=== PATIENT | male | born 1990 | race American Indian/Alaskan Native ===

== ENCOUNTER 2019-07-19 00:10 | Emergency (ER) | payer SELFPAY ==
[2019-07-19 00:22] VITALS: BP 118/68
[2019-07-19] MEDS ORDERED: traMADol 50 MG TAB PO ONE (02:55)
--- NOTE | 2019-07-19 02:59 | Emergency Department Report ---
ED ENT HPI - General Chief complaint: Dental/Oral Stated complaint: MOUTH/HEAD PAIN Time Seen by Provider: 07/19/19 02:53 Source: patient Mode of arrival: Ambulatory Limitations: No Limitations - History of Present Illness Initial comments: pt is a a28 y/o aam who presents for dental pain x 3 day, hx of dental carries x 2 yrs. pt denies fever or chills, no throat or ear pain , no gum swelling or facial swelling. Pt is tolerating po intake. MD complaint: tooth pain Onset/Timin -: days(s) Location: tooth # (30) Severity: moderate Severity scale (0 -10): 5 Quality: aching Consistency: constant Improves with: none Worsens with: eating Context- Dental: history of dental caries, poor dental care Associated Symptoms: toothache. denies: fever, cough, gum swelling, pain with swallowing, sore throat, tinnitus - Related Data Previous Rx's Medication Instructions Recorded Last Taken Type Amoxicillin [Trimox CAP] 500 mg PO Q8H 10 Days #30 capsule 07/19/19 Unknown Rx Chlorhexidine Mouthwash [Peridex] 15 ml MM BID #1 bottle 07/19/19 Unknown Rx traMADol [Ultram] 50 mg PO Q6HR PRN #12 tablet 07/19/19 Unknown Rx ED Dental HPI - General Chief complaint: Dental/Oral Stated complaint: MOUTH/HEAD PAIN Time Seen by Provider: 07/19/19 02:53 Source: patient Mode of arrival: Ambulatory Limitations: No Limitations - Related Data Previous Rx's Medication Instructions Recorded Last Taken Type Amoxicillin [Trimox CAP] 500 mg PO Q8H 10 Days #30 capsule 07/19/19 Unknown Rx Chlorhexidine Mouthwash [Peridex] 15 ml MM BID #1 bottle 07/19/19 Unknown Rx traMADol [Ultram] 50 mg PO Q6HR PRN #12 tablet 07/19/19 Unknown Rx ED Review of Systems ROS: Stated complaint: MOUTH/HEAD PAIN Other details as noted in HPI Constitutional: denies: chills, fever Eyes: denies: eye pain, eye discharge, vision change ENT: dental pain. denies: ear pain, throat pain Respiratory: denies: cough, shortness of breath, wheezing Cardiovascular: denies: chest pain, palpitations Endocrine: no symptoms reported Gastrointestinal: denies: abdominal pain, nausea, diarrhea Genitourinary: denies: urgency, dysuria Musculoskeletal: denies: back pain, joint swelling, arthralgia Skin: denies: rash, lesions Neurological: denies: headache, weakness, paresthesias Psychiatric: denies: anxiety, depression Hematological/Lymphatic: denies: easy bleeding, easy bruising ED Past Medical Hx - Past Medical History Previous Medical History?: No - Surgical History Past Surgical History?: Yes Additional Surgical History: c4-5 sx, Hernia - Social History Smoking Status: Current Every Day Smoker - Medications Home Medications: Home Medications Medication Instructions Recorded Confirmed Last Taken Type Amoxicillin [Trimox CAP] 500 mg PO Q8H 10 Days #30 capsule 07/19/19 Unknown Rx Chlorhexidine Mouthwash [Peridex] 15 ml MM BID #1 bottle 07/19/19 Unknown Rx traMADol [Ultram] 50 mg PO Q6HR PRN #12 tablet 07/19/19 Unknown Rx ED Physical Exam - General Limitations: No Limitations General appearance: alert, in no apparent distress - Head Head exam: Present: atraumatic, normocephalic - Eye Eye exam: Present: normal appearance, PERRL, EOMI. Absent: conjunctival injection Pupils: Present: normal accommodation - ENT ENT exam: Present: mucous membranes moist, TM's normal bilaterally, normal external ear exam - Expanded ENT Exam Expanded Mouth exam: Absent: trismus Teeth exam: Present: dental caries, dental tenderness # (30) - Neck Neck exam: Present: normal inspection - Respiratory Respiratory exam: Present: normal lung sounds bilaterally. Absent: respiratory distress, wheezes, stridor, chest wall tenderness - Cardiovascular Cardiovascular Exam: Present: regular rate, normal rhythm, normal heart sounds. Absent: systolic murmur, diastolic murmur, rubs, gallop - GI/Abdominal GI/Abdominal exam: Present: soft, normal bowel sounds - Rectal Rectal exam: Present: deferred - Extremities Exam Extremities exam: Present: normal inspection, full ROM, tenderness - Back Exam Back exam: Present: normal inspection, full ROM - Neurological Exam Neurological exam: Present: alert, oriented X3, CN II-XII intact, normal gait - Psychiatric Psychiatric exam: Present: normal affect, normal mood - Skin Skin exam: Present: warm, dry, intact, normal color. Absent: rash ED Course Vital Signs 07/19/19 00:17 Temperature 98.7 F Pulse Rate 63 Respiratory 18 Rate Blood Pressure 118/68 O2 Sat by Pulse 98 Oximetry ED Medical Decision Making - Medical Decision Making this is infected dental carries no focal abscess plan: amoxicillin , ultram, peridex , follow up with dentist, pt verbalized agreement and understanding discharge plan. Critical care attestation.: If time is entered above; I have spent that time in minutes in the direct care of this critically ill patient, excluding procedure time. ED Disposition Clinical Impression: Dental caries Disposition: - TO HOME OR SELFCARE Is pt being admited?: No Does the pt Need Aspirin: No Condition: Stable Instructions: Dental Caries (ED) Additional Instructions: follow up with dentist as directed Prescriptions: Chlorhexidine Mouthwash [Peridex] 15 ml MM BID #1 bottle Amoxicillin [Trimox CAP] 500 mg PO Q8H 10 Days #30 capsule traMADol [Ultram] 50 mg PO Q6HR PRN #12 tablet PRN Reason: Pain Referrals: PAN MCKEON III, [facility] [Primary Care Provider] - 3-5 Days Forms: Work/School Release Form(ED) Time of Disposition: 03:05
== END 2019-07-19 03:34 | disposition home or self-care (01) ==
LOC: ED 00:10
DX: K02.9 Dental caries, unspecified (principal); F17.200 Nicotine dependence, unspecified, uncomplicated; Z79.899 Other long term (current) drug therapy

== ENCOUNTER 2020-01-20 12:53 | Emergency (ER) | payer MEDICAID, OTHER ==
[2020-01-20 15:24] LABS: Basophils % (Auto) 0.8 % (0.0-1.8); Eosinophils # (Auto) 0.3 K/mm3 (0.0-0.4); Hematocrit 42.5 % (35.5-45.6); Hemoglobin 14.4 gm/dl (11.8-15.2); Lymphocytes # (Auto) 2.2 K/mm3 (1.2-5.4); Mean Corpuscular HGB Conc 34 % (32-34); Mean Corpuscular Volume 94 fl (84-94); Monocytes # (Auto) 0.5 K/mm3 (0.0-0.8); Monocytes % (Auto) 7.9 % (0.0-7.3); Platelet Count 200 K/mm3 (140-440); Red Blood Count 4.52 M/mm3 (3.65-5.03); Red Cell Distribution Width 12.9 % (13.2-15.2)
--- NOTE | 2020-01-20 15:27 | Emergency Department Report ---
HPI - General Chief Complaint: Abdominal Pain Time Seen by Provider: 01/20/20 14:57 - HPI HPI: 29-year-old -[place] male presents to the emergency department with complaint of some pain to the bottom of the left side of his rib cage and to the left flank that has been going on for the past 2 days. The pain worsens with certain movements and when he presses on this area. He denies any swelling, rash, skin color change. He denies any fever, nausea, vomiting, dysuria, diarrhea or constipation. No past medical history. He has not taken anything for his symptoms prior to presentation. ED Past Medical Hx - Past Medical History Previous Medical History?: No - Surgical History Past Surgical History?: Yes Additional Surgical History: c4-5 sx, Hernia - Social History Smoking Status: Current Every Day Smoker Substance Use Type: Marijuana - Medications Home Medications: Home Medications Medication Instructions Recorded Confirmed Last Taken Type Amoxicillin [Trimox CAP] 500 mg PO Q8H 10 Days #30 capsule 07/19/19 Unknown Rx Chlorhexidine Mouthwash [Peridex] 15 ml MM BID #1 bottle 07/19/19 Unknown Rx traMADoL [Ultram] 50 mg PO Q6HR PRN #12 tablet 07/19/19 Unknown Rx Ibuprofen [Motrin 800 MG tab] 800 mg PO Q8HR PRN #20 tablet 01/20/20 Unknown Rx ED Review of Systems ROS: Stated complaint: LEFT RIB PAIN Other details as noted in HPI Comment: All other systems reviewed and negative Constitutional: denies: chills, fever Respiratory: denies: cough, shortness of breath Cardiovascular: denies: palpitations, edema Gastrointestinal: abdominal pain (left flank). denies: vomiting Genitourinary: denies: dysuria, discharge Musculoskeletal: other (left lower lateral rib cage pain). denies: back pain Skin: denies: rash, change in color Neurological: denies: headache, weakness Physical Exam - Physical Exam Vital Signs: Vital Signs 01/20/20 13:10 Temperature 98.0 F Pulse Rate 65 Respiratory 18 Rate Blood Pressure 127/80 O2 Sat by Pulse 100 Oximetry Physical Exam: GENERAL: The patient is well-developed well-nourished. HENT: Normocephalic. Atraumatic. Patient has moist mucous membranes. EYES: Extraocular motions are intact. NECK: Supple. Trachea is midline. CHEST/LUNGS: Clear to auscultation. There is no respiratory distress noted. HEART/CARDIOVASCULAR: Regular. There is no tachycardia. There is no murmur. ABDOMEN: Abdomen is soft. There is reproducible left lateral flank pain to palpation. No obvious deformities. No rebound tenderness. No guarding. Patient has normal bowel sounds. There is no abdominal distention. SKIN: Skin is warm and dry. NEURO: The patient is awake, alert, and oriented. The patient is cooperative. The patient has no focal neurologic deficits. Normal speech. MUSCULOSKELETAL: There is no tenderness or deformity. There is no evidence of acute injury. ED Course Vital Signs 01/20/20 13:10 Temperature 98.0 F Pulse Rate 65 Respiratory 18 Rate Blood Pressure 127/80 O2 Sat by Pulse 100 Oximetry ED Medical Decision Making - Lab Data Result diagrams: 01/20/20 15:10 01/20/20 15:10 - Radiology Data Radiology results: report reviewed, image reviewed interpreted by me: Chest x-ray does not show any acute process. There are no pleural effusions, obvious pneumonia and there is no pneumothorax. Abdominal x-ray shows nonspecific nonobstructive bowel gas CT ABDOMEN AND PELVIS WITHOUT CONTRAST HISTORY: Left flank pain. COMPARISON: None TECHNIQUE: Routine abdominal and pelvic CT exam performed without contrast. Lack of intravenous contrast limits evaluation of the vascular and solid organs.. All CT scans at this location are performed using CT dose reduction for ALARA by means of automated exposure control. FINDINGS: CT ABDOMEN: Lung Bases: No significant abnormality. Liver: No significant abnormality. Biliary: No si gnificant abnormality. Spleen: No significant abnormality. Unenlarged. Pancreas: No significant abnormality. Adrenals: There is an indeterminate 3.2 cm left nodule with internal density measurement of 16 Hounsfield unit. Kidneys: No significant abnormality. Lymphatics: No lymphadenopathy. Vasculature: No significant abnormality. Bowel/Peritoneum: No significant abnormality. No free air. No free fluid. Normal appendix. CT PELVIC: : No significant abnormality. Lymphatics: No lymphadenopathy. Osseous Structures: No aggressive appearing osseous lesions. Additional Findings: None IMPRESSION: 1. No acute findings. 2. Indeterminate 3.2 cm left adrenal nodule. (Unlikely to be the etiology of the p atient's symptoms). If there is no prior imaging available for comparison to determine stability, further characterization with adrenal protocol CT or MRI on a nonemergent basis is recommended. - Medical Decision Making This patient presents with a 2 to 3-day history of atraumatic left flank pain and some pain towards the bottom of the left lateral rib cage. No crepitus or deformity. There is some mild reproducible tenderness to palpation and the patient seems to have some increased discomfort with certain movements of his torso. Labs have been unremarkable including CBC and CMP. A CT scan of the abdomen and pelvis shows a 3.2 cm left adrenal nodule that appears to be an incidental finding, otherwise no acute process found. Chest x-ray does not show any pneumothorax, rib fracture, or any other acute process. Patient was given a shot of Toradol and upon reevaluation says he is feeling some improvement. Vital signs stable throughout his ED course. He will be discharged home to follow-up with primary care. He will return to the ER with any worsening of his symptoms or any acute distress. Critical Care Time: No Critical care attestation.: If time is entered above; I have spent that time in minutes in the direct care of this critically ill patient, excluding procedure time. ED Disposition Clinical Impression: Left flank pain, Rib pain on left side Disposition: DC- TO HOME OR SELFCARE Is pt being admited?: No Condition: Stable Instructions: Flank Pain (ED) Additional Instructions: Please follow-up with a primary care physician in the next few days. Return to the emergency department with any worsening of your symptoms or any acute distress. Prescriptions: Ibuprofen [Motrin 800 MG tab] 800 mg PO Q8HR PRN #20 tablet PRN Reason: Pain , Severe (7-10) Referrals: MIKI SANCHEZ MD [Staff Physician] - 3-5 Days [facility] [Provider Group] - 3-5 Days PRIMARY MD LUCY [Primary Care Provider] - 3-5 Days Time of Disposition: 17:23
[2020-01-20 15:47] LABS: Alanine Aminotransferase 23 units/L (7-56); Albumin 4.4 g/dL (3.9-5); BUN/Creatinine Ratio 6; Blood Urea Nitrogen 6 mg/dL (9-20); Calcium 9.8 mg/dL (8.4-10.2); Hemolysis Index 5
[2020-01-20] MEDS ORDERED: KETOROLAC 30 MG/1 ML INJ IM ONE (15:55)
--- NOTE | 2020-01-20 16:09 | XRay Report ---
ABDOMEN 2 VIEW(S) WITH PA CHEST INDICATION / CLINICAL INFORMATION: left sided abd pain, left lower rib pain. COMPARISON: None available. FINDINGS: CHEST X-RAY: No acute cardiopulmonary abnormality. TUBES / LINES: None. BOWEL GAS PATTERN/EXTRALUMINAL GAS: No significant abnormality. No pneumatosis or secondary signs of free air. ADDITIONAL FINDINGS: No significant additional findings. IMPRESSION: 1. No acute findings. Signer Name: Christopher Gutierrez MD Signed: 01/20/2020 4:04 PM Workstation Name: [id number]
--- NOTE | 2020-01-20 17:13 | Cat Scan Report ---
CT ABDOMEN AND PELVIS WITHOUT CONTRAST HISTORY: Left flank pain. COMPARISON: None TECHNIQUE: Routine abdominal and pelvic CT exam performed without contrast. Lack of intravenous cont rast limits evaluation of the vascular and solid organs.. All CT scans at this location are performed using CT dose reduction for ALARA by means of automated exposure control. FINDINGS: CT ABDOMEN: Lung Bases: No significant abnormality. Liver: No significant abnormality. Biliary: No significant abnormality. Spleen: No significant abnormality. Unenlarged. Pancreas: No significant abnormality. Adrenals: There is an indeterminate 3.2 cm left nodule with internal density measurement of 16 Hounsf [place]eld unit. Kidneys: No significant abnormality. Lymphatics: No lymphadenopathy. Vasculature: No significant abnormality. Bowel/Peritoneum: No significant abnormality. No free air. No free fluid. Normal appendix. CT PELVIC: : No significant abnormality. Lymphatics: No lymphadenopathy. Osseous Structures: No aggressive appearing osseous lesions. Additional Findings: None IMPRESSION: 1. No acute findings. 2. Indeterminate 3.2 cm left adrenal nodule. (Unlikely to be the etiology of the patient's symptoms). If there is no prior imaging available for comparison to determine stability, further characterizati on with adrenal protocol CT or MRI on a nonemergent basis is recommended. Signer Name: Christopher Gutierrez MD Signed: 01/20/2020 5:08 PM Workstation Name: [email or web address]
[2020-01-21 13:25] VITALS: BP 126/83
== END 2020-01-20 17:35 | disposition home or self-care (01) ==
LOC: ED 12:53
DX: R07.81 Pleurodynia (principal); R10.9 Unspecified abdominal pain; F17.200 Nicotine dependence, unspecified, uncomplicated; F12.90 Cannabis use, unspecified, uncomplicated; Z79.899 Other long term (current) drug therapy; Z98.890 Other specified postprocedural states
CPT/HCPCS: 36415; 74022; 74176; 80053; 85025; 96372; 99284; J1885

== ENCOUNTER 2022-03-08 11:10 | Emergency (ER) | payer SELFPAY ==
[2022-03-08 11:47] VITALS: BP 120/77
--- NOTE | 2022-03-08 12:15 | XRay Report ---
CHEST 2 VIEWS INDICATION / CLINICAL INFORMATION: Chest pain for 2 days. COMPARISON: None available. FINDINGS: SUPPORT DEVICES: None. HEART / MEDIASTINUM: No significant abnormality. LUNGS / PLEURA: No significant pulmonary or pleural abnormality. No pneumothorax. ADDITIONAL FINDINGS: No significant additional findings. IMPRESSION: 1. No acute findings. Signer Name: Anjel Roche Jr, MD Signed: 03/08/2022 12:10 PM Workstation Name: [id number]
--- NOTE | 2022-03-09 09:42 | Electrocardiograph Report ---
[facility] Test Date: 2022-03-08 Test Time: 11:50:51 Pat [facility] Department: Room: Gender: M Mail Order Biller: JIMBO : 1990 Requested By: ED DOC Order Number: [id number] Reading MD: Simeon Phipps Measurements Intervals [place] Rate: 60 P: 65 SD: 163 QRS: 236 QRSD: 96 T: 24 QT: 420 QTc: 420 Interpretive Statements Sinus rhythm Diffuse minor non specific T wave changes noted. Markedly posterior QRS axis No previous ECG available for comparison Electronically Signed On 03-09-2022 9:42:20 EDT by Simeon Phipps
== END 2022-03-08 16:07 | disposition left against medical advice (07) ==
LOC: ED 11:10
DX: R07.9 Chest pain, unspecified (principal); Z53.21 Procedure and treatment not carried out due to patient leaving prior to being seen by health care provider
CPT/HCPCS: 71046; 93005